=== PATIENT | male | born 1940 | race Caucasian/White ===

== ENCOUNTER 2022-01-19 13:40 | Outpatient (CLI) | payer MEDICARE, BC | END 2022-01-19 13:41 | disposition home or self-care (01) | LOC: BICULT 13:40 | PROVIDERS: ATTEND Internal Medicine Nephrology | DX: N18.30 Chronic kidney disease, stage 3 unspecified (principal); N28.1 Cyst of kidney, acquired; N28.89 Other specified disorders of kidney and ureter | CPT/HCPCS: 76770 ==

== ENCOUNTER 2022-01-27 07:28 | Outpatient (CLI) | payer MEDICARE, BC | END 2022-01-27 07:29 | disposition home or self-care (01) | LOC: SCSMRI 07:28 | PROVIDERS: ATTEND Internal Medicine Hematology & Oncology | DX: C15.5 Malignant neoplasm of lower third of esophagus (principal); C61 Malignant neoplasm of prostate; C79.31 Secondary malignant neoplasm of brain | CPT/HCPCS: 70553 ==

== ENCOUNTER 2022-05-18 10:19 | Outpatient (CLI) | payer MEDICARE, BC ==
[~2022-05-18 10:19] MED LIST: Iopamidol 370 76% 50 ML VIAL FS ONE
== END 2022-05-18 10:20 | disposition home or self-care (01) ==
LOC: BICCT 10:19
PROVIDERS: ATTEND Internal Medicine Hematology & Oncology
DX: C61 Malignant neoplasm of prostate (principal); C15.5 Malignant neoplasm of lower third of esophagus; E27.8 Other specified disorders of adrenal gland; K83.8 Other specified diseases of biliary tract; N28.1 Cyst of kidney, acquired; K57.30 Diverticulosis of large intestine without perforation or abscess without bleeding; Z98.890 Other specified postprocedural states
CPT/HCPCS: 74178; 82565; Q9967

== ENCOUNTER 2022-10-21 08:58 | Outpatient (CLI) | payer MEDICARE, BC ==
[2022-10-21] MEDS ORDERED: Magnevist 469MG/ML 20 ML VIAL ONE (14:39)
== END 2022-10-21 08:59 | disposition home or self-care (01) ==
LOC: MRI 08:58
PROVIDERS: ATTEND Internal Medicine Hematology & Oncology
DX: C15.5 Malignant neoplasm of lower third of esophagus (principal); C79.31 Secondary malignant neoplasm of brain; G93.9 Disorder of brain, unspecified; R90.89 Other abnormal findings on diagnostic imaging of central nervous system
CPT/HCPCS: 70553

== ENCOUNTER 2023-05-18 17:00 | Outpatient (CLI) | payer MEDICARE, BC | END 2023-05-18 17:01 | disposition home or self-care (01) | LOC: SLEEPLAB 17:00 | PROVIDERS: ATTEND Family Medicine | DX: G47.33 Obstructive sleep apnea (adult) (pediatric) (principal); G47.10 Hypersomnia, unspecified; I63.9 Cerebral infarction, unspecified | CPT/HCPCS: 95800 ==

== ENCOUNTER 2023-10-03 07:53 | Outpatient (CLI) | payer MEDICARE, BC | END 2023-10-03 07:54 | disposition home or self-care (01) | LOC: BICMRI 07:53 | PROVIDERS: ATTEND Family Medicine | DX: M54.2 Cervicalgia (principal); M50.31 Other cervical disc degeneration, high cervical region | CPT/HCPCS: 72141 ==

== ENCOUNTER 2024-01-18 11:23 | Outpatient (CLI) | payer MEDICARE, BC | END 2024-01-18 11:24 | disposition home or self-care (01) | LOC: SCSRAD 11:23 | PROVIDERS: ATTEND Family Medicine | DX: M25.561 Pain in right knee (principal); M17.11 Unilateral primary osteoarthritis, right knee; M11.261 Other chondrocalcinosis, right knee; M89.9 Disorder of bone, unspecified ==

== ENCOUNTER 2024-09-02 10:57 | Outpatient (CLI) | payer MEDICARE, BC ==
[2024-09-02] MEDS ORDERED: Magnevist 469MG/ML 20 ML VIAL ONE (11:00)
== END 2024-09-02 10:58 | disposition home or self-care (01) ==
LOC: MRI 10:57
PROVIDERS: ATTEND Internal Medicine Hematology & Oncology
DX: C61 Malignant neoplasm of prostate (principal); C15.5 Malignant neoplasm of lower third of esophagus; I63.9 Cerebral infarction, unspecified; Z98.890 Other specified postprocedural states
CPT/HCPCS: 70553; 76376

== ENCOUNTER 2025-02-05 11:50 | Inpatient (IN) | payer MEDICARE, BC ==
[2025-02-05 12:24] LABS: #Basophils 0.04 10x3/uL (0.0-0.2); #Eosinophils 0.47 10x3/uL (0.0-0.7); #Monocytes 0.62 10x3/uL (0.11-0.59); #Neutrophils 6.90 10x3/uL (1.40-6.50); %Basophils 0.4 % (0.0-1.0); %Eosinophils 4.7 % (0.0-10.0); %Lymphocytes 19.2 % (21.0-51.0); %Monocytes 6.2 % (0.0-10.0); %Neutrophils 69.1 % (42.0-75.0); Hematocrit 33.8 % (42.0-52.0); Hemoglobin 11.0 g/dL (14.0-18.0); Mean Corpuscular Hemoglobin 31.1 pg (27.0-31.0); Mean Corpuscular Volume 95.5 fL (78.0-98.0); Platelet Count 163 10x3/uL (130-400); Red Blood Cell (RBC) Count 3.54 mill/uL (4.70-6.10); White Blood Cell (WBC) Count 9.99 10x3/uL (4.8-10.8)
[2025-02-05 12:53] LABS: Bacteria/HPF None Seen HPF (None Seen); CAUTI Indications for Culture Alt mental st,lethar; Glucose, Urine (Dipstick) Normal (Negative); Leukocyte Negative Leu/uL (Negative); Protein, Urine (Dipstick) 10 mg/dL (Neg-Trace); RBC/HPF 0-3 HPF (0-3); Specific Gravity, Urine 1.016 (1.002-1.036); Urine Culture Reflex No No; WBC/HPF 0-3 HPF (0-3)
[2025-02-05 12:54] LABS: ALT (SGPT) 98 U/L (Less than 45); AST (SGOT) 92 U/L (11-34); Albumin 3.4 g/dL (3.1-4.5); Alkaline Phosphatase 122 U/L (40-110); Anion Gap 18 mmol/L (10-20); BUN (Urea Nitrogen) 55 mg/dL (8.4-25.7); Bilirubin, Total 0.4 mg/dL (0.3-1.2); Calc. Creatinine Clearance 0 mL/min (70-130); Calcium 9.2 mg/dL (7.8-10.44); Carbon Dioxide 19 mmol/L (23-31); Chloride 114 mmol/L (98-107); Globulin 3.3 g/dL (2.4-3.5); Glucose 105 mg/dL (83-110); Potassium 4.8 mmol/L (3.5-5.1); Sodium 146 mmol/L (136-145)
[2025-02-05 13:27] LABS: Troponin I 0.033 ng/mL (< 0.028)
[2025-02-05 17:54] LABS: Troponin I 0.032 ng/mL (< 0.028)
[2025-02-05 18:56] VITALS: BMI 21.5
[2025-02-05 20:48] LABS: Troponin I 0.029 ng/mL (< 0.028)
[2025-02-05] MEDS: Sodium Bicarbonate Tab 325 MG TAB PO SCH (21:15)
[2025-02-06 06:47] LABS: ALT (SGPT) 71 U/L (Less than 45); AST (SGOT) 51 U/L (11-34); Albumin 3.1 g/dL (3.1-4.5); Alkaline Phosphatase 112 U/L (40-110); Anion Gap 15 mmol/L (10-20); BUN (Urea Nitrogen) 47 mg/dL (8.4-25.7); Bilirubin, Total 0.5 mg/dL (0.3-1.2); Calc. Creatinine Clearance 14 mL/min (70-130); Calcium 8.6 mg/dL (7.8-10.44); Carbon Dioxide 16 mmol/L (23-31); Chloride 119 mmol/L (98-107); Globulin 3.0 g/dL (2.4-3.5); Glucose 91 mg/dL (83-110); Potassium 4.9 mmol/L (3.5-5.1); Sodium 145 mmol/L (136-145)
[2025-02-06] MEDS: Cholecalciferol 1,000 UNITS (25 MCG) TAB PO SCH (08:38)
[2025-02-06] MEDS: Calcitriol 0.25 MCG CAP PO SCH (08:39)
[2025-02-06] MEDS: Ferrous Sulfate 325 MG TAB PO SCH (08:39)
[2025-02-06 10:15] LABS: #Basophils 0.04 10x3/uL (0.0-0.2); #Eosinophils 0.39 10x3/uL (0.0-0.7); #Monocytes 0.78 10x3/uL (0.11-0.59); #Neutrophils 7.20 10x3/uL (1.40-6.50); %Basophils 0.4 % (0.0-1.0); %Eosinophils 3.9 % (0.0-10.0); %Lymphocytes 16.2 % (21.0-51.0); %Monocytes 7.7 % (0.0-10.0); %Neutrophils 71.5 % (42.0-75.0); Hematocrit 32.9 % (42.0-52.0); Hemoglobin 10.4 g/dL (14.0-18.0); Mean Corpuscular Hemoglobin 31.0 pg (27.0-31.0); Mean Corpuscular Volume 98.2 fL (78.0-98.0); Platelet Count 139 10x3/uL (130-400); Red Blood Cell (RBC) Count 3.35 mill/uL (4.70-6.10); White Blood Cell (WBC) Count 10.07 10x3/uL (4.8-10.8)
[2025-02-06 11:00] VITALS: BMI 21.5
[2025-02-06 12:09] LABS: Platelet Adequacy Comment Platelets Normal; Polychromasia SLIGHT = 2-3 cells HPF (0-2)
[2025-02-06] MEDS: Cyproheptadine 4 MG TAB PO SCH (21:04)
[2025-02-06] MEDS: QUEtiapine 25 MG TAB PO SCH (21:04)
[2025-02-07 04:48] LABS: #Basophils 0.04 10x3/uL (0.0-0.2); #Eosinophils 0.44 10x3/uL (0.0-0.7); #Monocytes 0.48 10x3/uL (0.11-0.59); #Neutrophils 6.06 10x3/uL (1.40-6.50); %Basophils 0.5 % (0.0-1.0); %Eosinophils 5.2 % (0.0-10.0); %Lymphocytes 17.1 % (21.0-51.0); %Monocytes 5.6 % (0.0-10.0); %Neutrophils 71.1 % (42.0-75.0); Hematocrit 31.0 % (42.0-52.0); Hemoglobin 10.0 g/dL (14.0-18.0); Mean Corpuscular Hemoglobin 31.0 pg (27.0-31.0); Mean Corpuscular Volume 96.0 fL (78.0-98.0); Platelet Count 122 10x3/uL (130-400); Red Blood Cell (RBC) Count 3.23 mill/uL (4.70-6.10); White Blood Cell (WBC) Count 8.52 10x3/uL (4.8-10.8)
[2025-02-07 05:06] LABS: Albumin 3.0 g/dL (3.1-4.5); Anion Gap 14 mmol/L (10-20); BUN (Urea Nitrogen) 39 mg/dL (8.4-25.7); BUN/Creatinine Ratio 13.22; Calc. Creatinine Clearance 16 mL/min (70-130); Calcium 8.8 mg/dL (7.8-10.44); Carbon Dioxide 20 mmol/L (23-31); Chloride 115 mmol/L (98-107); Glucose 91 mg/dL (83-110); Potassium 4.3 mmol/L (3.5-5.1); Sodium 145 mmol/L (136-145)
[2025-02-07] MEDS: Multivitamin w/Zinc Stress 1 TAB PO SCH (09:29)
[2025-02-07] MEDS: Albumin 25% 25 GM (100 mL) BOT IVPB SCH (12:23)
[2025-02-08 05:31] LABS: #Basophils 0.04 10x3/uL (0.0-0.2); #Eosinophils 0.51 10x3/uL (0.0-0.7); #Monocytes 0.47 10x3/uL (0.11-0.59); #Neutrophils 5.16 10x3/uL (1.40-6.50); %Basophils 0.5 % (0.0-1.0); %Eosinophils 6.7 % (0.0-10.0); %Lymphocytes 18.6 % (21.0-51.0); %Monocytes 6.2 % (0.0-10.0); %Neutrophils 67.6 % (42.0-75.0); Hematocrit 28.7 % (42.0-52.0); Hemoglobin 9.3 g/dL (14.0-18.0); Mean Corpuscular Hemoglobin 31.2 pg (27.0-31.0); Mean Corpuscular Volume 96.3 fL (78.0-98.0); Platelet Count 118 10x3/uL (130-400); Red Blood Cell (RBC) Count 2.98 mill/uL (4.70-6.10); White Blood Cell (WBC) Count 7.63 10x3/uL (4.8-10.8)
[2025-02-08 05:44] LABS: Albumin 3.5 g/dL (3.1-4.5); Anion Gap 14 mmol/L (10-20); BUN (Urea Nitrogen) 40 mg/dL (8.4-25.7); BUN/Creatinine Ratio 14.18; Calc. Creatinine Clearance 17 mL/min (70-130); Calcium 9.0 mg/dL (7.8-10.44); Carbon Dioxide 21 mmol/L (23-31); Chloride 113 mmol/L (98-107); Glucose 86 mg/dL (83-110); Potassium 4.0 mmol/L (3.5-5.1); Sodium 144 mmol/L (136-145)
[2025-02-08] MEDS: QUEtiapine 25 MG TAB PO SCH (20:09)
[2025-02-09 05:18] LABS: #Basophils 0.03 10x3/uL (0.0-0.2); #Eosinophils 0.58 10x3/uL (0.0-0.7); #Monocytes 0.52 10x3/uL (0.11-0.59); #Neutrophils 7.20 10x3/uL (1.40-6.50); %Basophils 0.3 % (0.0-1.0); %Eosinophils 5.9 % (0.0-10.0); %Lymphocytes 15.1 % (21.0-51.0); %Monocytes 5.3 % (0.0-10.0); %Neutrophils 73.2 % (42.0-75.0); Hematocrit 30.8 % (42.0-52.0); Hemoglobin 9.8 g/dL (14.0-18.0); Mean Corpuscular Hemoglobin 30.8 pg (27.0-31.0); Mean Corpuscular Volume 96.9 fL (78.0-98.0); Platelet Count 121 10x3/uL (130-400); Red Blood Cell (RBC) Count 3.18 mill/uL (4.70-6.10); White Blood Cell (WBC) Count 9.83 10x3/uL (4.8-10.8)
[2025-02-09 15:26] LABS: Anion Gap 13 mmol/L (10-20); BUN (Urea Nitrogen) 48 mg/dL (8.4-25.7); Calc. Creatinine Clearance 18 mL/min (70-130); Calcium 8.5 mg/dL (7.8-10.44); Carbon Dioxide 20 mmol/L (23-31); Chloride 112 mmol/L (98-107); Glucose 124 mg/dL (83-110); Magnesium 1.5 mg/dL (1.6-2.6); Potassium 3.8 mmol/L (3.5-5.1); Sodium 141 mmol/L (136-145)
[2025-02-10 05:40] LABS: Anion Gap 13 mmol/L (10-20); BUN (Urea Nitrogen) 51 mg/dL (8.4-25.7); Calc. Creatinine Clearance 18 mL/min (70-130); Calcium 8.6 mg/dL (7.8-10.44); Carbon Dioxide 21 mmol/L (23-31); Chloride 110 mmol/L (98-107); Glucose 88 mg/dL (83-110); Potassium 3.9 mmol/L (3.5-5.1); Sodium 140 mmol/L (136-145)
[2025-02-10] MEDS: Magnesium Sulfate In Water 4 GM in Premix 1 BAG IVPB SCH (08:49)
[2025-02-11 04:52] LABS: Anion Gap 13 mmol/L (10-20); BUN (Urea Nitrogen) 51 mg/dL (8.4-25.7); Calc. Creatinine Clearance 18 mL/min (70-130); Calcium 8.8 mg/dL (7.8-10.44); Carbon Dioxide 23 mmol/L (23-31); Chloride 109 mmol/L (98-107); Glucose 93 mg/dL (83-110); Potassium 4.0 mmol/L (3.5-5.1); Sodium 141 mmol/L (136-145)
[2025-02-11 11:51] VITALS: BP 135/61; TEMP 98.7
== END 2025-02-11 15:00 | disposition home or self-care (01) | DRG 884 ==
LOC: ERS 11:50 → 2NO 16:40 → INTOOBSV 16:40 → OBSVTOIN 02-06 09:24
PROVIDERS: ADMIT Internal Medicine; ATTEND Internal Medicine
PROC: 0T9B70Z Drainage of Bladder with Drainage Device, Via Natural or Artificial Opening (ICD-10-PCS; principal; 2025-02-06)
DX: F01.50 Vascular dementia, unspecified severity, without behavioral disturbance, psychotic disturbance, mood disturbance, and anxiety (principal); E43 Unspecified severe protein-calorie malnutrition; C15.9 Malignant neoplasm of esophagus, unspecified; N18.4 Chronic kidney disease, stage 4 (severe); N17.9 Acute kidney failure, unspecified; E87.20 Acidosis, unspecified; Z79.899 Other long term (current) drug therapy; Z88.0 Allergy status to penicillin; C61 Malignant neoplasm of prostate; E78.5 Hyperlipidemia, unspecified; Z98.890 Other specified postprocedural states; M25.531 Pain in right wrist
CPT/HCPCS: 36415; 51701; 70450; 71045; 80048; 80053; 80069; 81001; 83735; 84484; 85025; 93005; 93010; G0378; J3475; J7030; J7120; P9047